=== PATIENT | male | born 1980 | race Caucasian/White ===

== ENCOUNTER 2020-05-10 22:59 | Emergency (ER) | payer OTHER, SELFPAY ==
[2020-05-10 23:09] VITALS: BP 147/76; PULSE 79; RESP 16; TEMP 36.8; O2SAT 100; BMI 22.5
--- NOTE | 2020-05-10 23:27 | ED.RECABL ---
HPI - Recheck/Abnormal Lab/Rx <Kelsie Mirza MD - Last Filed: 05/17/20 07:24> General Chief Complaint: Recheck/Abnormal Lab/Rx Stated Complaint: Sent by [place] physician re blood infection Time Seen by Provider: 05/10/20 23:25 Source: patient Mode of arrival: Ambulatory History of Present Illness HPI narrative: 40-year-old gentleman with a history of IV drug use initially seen 04/25 with a prepatellar knee abscess and cellulitis had a single positive blood culture from that visit he currently lives in [place] has been [facility] with [facility] Disease recommending 6 weeks of IV inpatient antibiotics however patient has social and work obligations that preclude him being in the hospital for this period of time. He has left the emergency room Against Medical Advice twice and [facility] physicians have declined PICC placement for outpatient antibiotics due to his IV drug use history. He has been on Septra and the knee clearly is improving. Blood cultures were not positive with his 2nd it ER visit 3 days later. He notes that he has had some mid thoracic back pain for the last 3-4 weeks approximately T6 level. Noted today is a soft diastolic murmur in the emergency department that was not mentioned in previous notes. Echocardiogram was done 6 days ago and we are working on obtaining results of that. In the meantime, patient aside from the midthoracic back pain present for 3-4 weeks feels that he is better with the knee infection improving. He is not complaining of palpitations, dyspnea, exertional dyspnea. Notes that the severe back pain was what caused his return to use and getting back to heroin after approximately 15 months of sobriety in outpatient treatment setting. He presents to the emergency room this evening, seeing his primary care physician, Dr. Bolanos, wanted him to come for further treatment. Related Data Previous Rx's Medication Instructions Recorded sulfamethoxazole-trimethoprim 1 tab PO BID #14 tab 05/11/20 [Bactrim DS] Allergies Allergy/AdvReac Type Severity Reaction Status Date / Time No Known Drug Allergies Allergy Verified 05/10/20 23:12 Review of Systems <Kelsie Mirza MD - Last Filed: 05/17/20 07:24> Review of Systems Narrative: Pertinent positive and negative findings as per HPI Remainder of review of systems is otherwise unremarkable for Constitutional: Fevers, chills, weakness ENT: No sore throat, neck pain, ear pain CV: Chest pain, palpitations, dyspnea on exertion Respiratory: Cough, wheeze, dyspnea GI: Nausea, vomiting, diarrhea, : Dysuria, hematuria, flank pain MS: Muscle weakness, numbness, Neuro: Syncope, dizziness, tingling Patient History <Kelsie Mirza MD - Last Filed: 05/17/20 07:24> Medical History Opioid use disorder Surgical History H/O knee surgery Social History (Reviewed 05/15/20 @ 21: by Shereen Wan DO) Smoking Status: Current every day smoker Smoking Status: Current every day smoker Substance Use Type: marijuana and prescription drug Exam <Kelsie Mirza MD - Last Filed: 05/17/20 07:24> Narrative Exam Narrative: General: Fatigued in generally unwell appearing but in no acute distress. Able to give a complete and coherent history. HEENT: Moist mucous membranes, normal sclera with reactive pupils, Neck: No JVD, supple Respiratory: Lungs are clear to auscultation, no wheezing no rales no rhonchi. Full and symmetrical air movement Cardiac: Regular rate and rhythm, 3/6 diastolic murmur heard best in an upright position and lattice at the apex, no bruits Abdomen: Soft, nontender, good bowel tones, no flank pain Skin: Multiple areas of small pockets of skin breakdown presumably from IV drug use as well as his methamphetamine use. Hands are both swollen in erythematous consistent both with you need using his hands consistently outside as well as IV drug use Neurologic: Grossly neurologically intact with no obvious asymmetries or abnormalities Extremities: Right forearm is significantly swollen compared to the left with more evidence of healing skin given superficial ulcers. There is an area of abrasion along the ventral surface that is healing that he states was related to a trauma at work with his arm catching on a number of nails well working with [employer]. Right knee has a healing wound over the patella with no erythema, no significant tenderness the right calf has 2+ edema left calf is unremarkable. He is able to walk without any difficulties Psych: Cooperative, good eye contact and nonpressured speech Initial Vital Signs Initial Vital Signs: Vital Signs Temperature 98.3 F 05/10/20 23:09 Pulse Rate 79 05/10/20 23:09 Respiratory Rate 16 05/10/20 23:09 Blood Pressure 147/76 H 05/10/20 23:09 Pulse Oximetry 100 05/10/20 23:09 <Shereen Wan DO - Last Filed: 05/11/20 19:07> Initial Vital Signs Initial Vital Signs: Vital Signs Temperature 98.3 F 05/10/20 23:09 Pulse Rate 79 05/10/20 23:09 Respiratory Rate 16 05/10/20 23:09 Blood Pressure 147/76 H 05/10/20 23:09 Pulse Oximetry 100 05/10/20 23:09 Course <Kelsie Mirza MD - Last Filed: 05/17/20 07:24> Orders Ordered: Discontinued Medications Sodium Chloride (Normal Saline 0.9%) 1,000 mls @ 1,000 mls/hr IV BOLUS ONE Stop: 05/11/20 01:58 Last Infusion: 05/11/20 02:49 Dose: 0 mls/hr Documented by: Admin: 05/11/20 01:02 Dose: 1,000 mls/hr Documented by: VERENICE Vital Signs Vital signs: Vital Signs - 8 hr 05/11/20 02:49 05/11/20 03:00 05/11/20 03:30 Pulse Rate 78 70 78 Blood Pressure 113/70 Pulse Oximetry 94 100 100 <Shereen Wan DO - Last Filed: 05/11/20 19:07> Orders Ordered: Discontinued Medications Sodium Chloride (Normal Saline 0.9%) 1,000 mls @ 1,000 mls/hr IV BOLUS ONE Stop: 05/11/20 01:58 Last Infusion: 05/11/20 02:49 Dose: 0 mls/hr Documented by: Admin: 05/11/20 01:02 Dose: 1,000 mls/hr Documented by: VERENICE Reevaluation(s) Reevaluation #1: Patient reevaluated by myself. Chart, HPI and ROS reviewed and patient examined. Plan for MRI this morning for back pain in the setting of hx of IVDA and 1 positive blood culture 04/25. Patient was recommended 6 weeks IV antibiotics but unable to do so secondary to personal obligations (young child at home and personal business) but has been on oral Septra. Attempting to obtain ECHO this am as well. Labs show anemia, elevated CPR at 1.2 but no leukocytosis and procalcitonin is negative. No other major lab abnormalities at this time. Patient has had MRI, reviewed risks and benefits but he states he needs to return home to his daughter. Plan to recontact patient regarding MRI results, he has been asked to call by 1pm if we have not contacted him today. Stable and non-toxic appearing at this time. He [place] and states he was told his ECHO looks great but we have not received a report yet although still trying to reach the [facility] cardiology. Patient is polite and discusses that he does have follow up and intends to follow up with PCP. Time: 09:09 Vital Signs Vital signs: Vital Signs - 8 hr 05/11/20 02:49 05/11/20 03:00 05/11/20 03:30 Pulse Rate 78 70 78 Blood Pressure 113/70 Pulse Oximetry 94 100 100 MDM - Recheck/Abnormal Lab/Rx <Kelsie Mirza MD - Last Filed: 05/17/20 07:24> Medical Records Attestation: I reviewed the patient's medical records. Medical records narrative: Records from [facility] timeline: ER 04/25 Right knee pain with lymphangytic spread. -CT of knee for intra-articular involvement. + blood cx for MSSA pt returned to ER 04/27, Vanco/rocephin. Repeat blood cx, no growth. Left AMA. during this time he had a return to use and urine + for meth/heroin on 04/30 04/30 pt states his PCP (Dr Bolanos)[place] sent him to [facility] ER to have a PICC line placed in anticipation of 6 weeks of outpatient IV antibiotics. Case was reveiwed with ID, Dr Novoa who recomended agressive ER management. Outpatient IV antibiotics with IV access in a setting of IV drug use is against hospital policy at [facility]. He was discharged with Bactrim and patient has continued to take that. 05/01 6 week hospital stay for IV antibiotics offered and patient declined and again left Against Medical Advice (has a 9-year-old daughter for whom he must care and owns his own [employer] business) Summary: one BC positive on 04/25 with prepatellar abscess right knee and cellulitis. Treated with a couple dose IV vanco and ceftriaxone with ER visits and has continued septra. B/C from 04/27 were negative. Had Echocardiogram on 05/04. Lab Data Result diagrams: 05/11/20 00:20 05/11/20 00:20 Labs: Lab Results 05/11/20 05/11/20 05/11/20 Range/Units 00:20 00:20 00:20 WBC 8.0 (4.5-11.0) X10^3/uL RBC 3.47 L (4.5-5.9) X10^6/uL Hgb 9.3 L (13.5-17.5) g/dL Hct 28.6 L (41-53) % MCV 82.3 (80-100) fL MCH 26.7 (26-34) PG MCHC 32.5 (30-36) % RDW 16.3 H (11.6-14.8) % Plt Count 341 (150-400) X10^3/uL Neut % (Auto) 64.9 (50-75) % Lymph % (Auto) 25.3 (25-40) % [place] % (Auto) 7.9 (3-14) % Eos % (Auto) 0.9 L (2-4) % Baso % (Auto) 1.0 (0-2) % Neut # (Auto) 5200 (4626-0479) /uL Lymph # (Auto) 2000 (6393-6133) /uL [place] # (Auto) 600 (0-900) /uL Eos # (Auto) 100 (0-450) /uL Baso # (Auto) 100 (0-100) /uL ESR (0-15) MM/HR Sodium 135 L (137-145) mmol/L Potassium 4.2 (3.4-5.1) mmol/L Chloride 101 (98-107) mmol/L Carbon Dioxide 31 (22-32) mmol/L BUN 17 (9-20) mg/dL Creatinine 0.85 (0.66-1.25) mg/dL Estimated GFR > 60.0 (>60) mL/min BUN/Creatinine Ratio 20.0 (6-22) Glucose 98 (70-100) mg/dL Lactate 0.5 L (0.7-2.1) mmol/L Calcium 8.9 (8.4-10.2) mg/dL Total Bilirubin 0.2 (0.2-1.3) mg/dL AST 28 (17-59) IU/L ALT 13 (<50) IU/L Alkaline Phosphatase 84 (38-126) U/L C-Reactive Protein (<1.0) mg/dL Total Protein 7.7 (6.3-8.2) g/dL Albumin 3.6 (3.5-5.0) g/dL Globulin 4.1 (1.7-4.1) g/dL Albumin/Globulin Ratio 0.9 L (1.0-2.8) Procalcitonin (<0.5) ng/mL SARS-CoV-2 (PCR) (Negative) 05/11/20 05/11/20 05/11/20 Range/Units 00:20 00:20 00:20 WBC (4.5-11.0) X10^3/uL RBC (4.5-5.9) X10^6/uL Hgb (13.5-17.5) g/dL Hct (41-53) % MCV (80-100) fL MCH (26-34) PG MCHC (30-36) % RDW (11.6-14.8) % Plt Count (150-400) X10^3/uL Neut % (Auto) (50-75) % Lymph % (Auto) (25-40) % [place] % (Auto) (3-14) % Eos % (Auto) (2-4) % Baso % (Auto) (0-2) % Neut # (Auto) (6182-8967) /uL Lymph # (Auto) (3690-2952) /uL [place] # (Auto) (0-900) /uL Eos # (Auto) (0-450) /uL Baso # (Auto) (0-100) /uL ESR 41 H (0-15) MM/HR Sodium (137-145) mmol/L Potassium (3.4-5.1) mmol/L Chloride (98-107) mmol/L Carbon Dioxide (22-32) mmol/L BUN (9-20) mg/dL Creatinine (0.66-1.25) mg/dL Estimated GFR (>60) mL/min BUN/Creatinine Ratio (6-22) Glucose (70-100) mg/dL Lactate (0.7-2.1) mmol/L Calcium (8.4-10.2) mg/dL Total Bilirubin (0.2-1.3) mg/dL AST (17-59) IU/L ALT (<50) IU/L Alkaline Phosphatase (38-126) U/L C-Reactive Protein 1.2 H (<1.0) mg/dL Total Protein (6.3-8.2) g/dL Albumin (3.5-5.0) g/dL Globulin (1.7-4.1) g/dL Albumin/Globulin Ratio (1.0-2.8) Procalcitonin 0.05 (<0.5) ng/mL SARS-CoV-2 (PCR) (Negative) 05/11/20 Range/Units 00:38 WBC (4.5-11.0) X10^3/uL RBC (4.5-5.9) X10^6/uL Hgb (13.5-17.5) g/dL Hct (41-53) % MCV (80-100) fL MCH (26-34) PG MCHC (30-36) % RDW (11.6-14.8) % Plt Count (150-400) X10^3/uL Neut % (Auto) (50-75) % Lymph % (Auto) (25-40) % [place] % (Auto) (3-14) % Eos % (Auto) (2-4) % Baso % (Auto) (0-2) % Neut # (Auto) (2478-9348) /uL Lymph # (Auto) (2703-9732) /uL [place] # (Auto) (0-900) /uL Eos # (Auto) (0-450) /uL Baso # (Auto) (0-100) /uL ESR (0-15) MM/HR Sodium (137-145) mmol/L Potassium (3.4-5.1) mmol/L Chloride (98-107) mmol/L Carbon Dioxide (22-32) mmol/L BUN (9-20) mg/dL Creatinine (0.66-1.25) mg/dL Estimated GFR (>60) mL/min BUN/Creatinine Ratio (6-22) Glucose (70-100) mg/dL Lactate (0.7-2.1) mmol/L Calcium (8.4-10.2) mg/dL Total Bilirubin (0.2-1.3) mg/dL AST (17-59) IU/L ALT (<50) IU/L Alkaline Phosphatase (38-126) U/L C-Reactive Protein (<1.0) mg/dL Total Protein (6.3-8.2) g/dL Albumin (3.5-5.0) g/dL Globulin (1.7-4.1) g/dL Albumin/Globulin Ratio (1.0-2.8) Procalcitonin (<0.5) ng/mL SARS-CoV-2 (PCR) Negative (Negative) ECG Data Attestation: I personally reviewed and interpreted this ECG as follows: MDM Narrative Medical decision making narrative: Disjointed medical care in a gentleman with a history of IV drug use currently living on [address] with a positive blood culture on 04/25. Right knee prepatellar abscess and cellulitis has resolved nicely he continues on Bactrim. He does have a noted diastolic murmur today without evidence of splinter hemorrhages or other sequelae of endocarditis. The midthoracic back pain raises the possibility of epidural abscess or diskitis. Will continue to work on tracking down echocardiogram done May 04. Blood work done today is unremarkable. MRI of the thoracic spine to rule out epidural abscess will also be appropriate. Blood work does not suggest severe overt infection however his C reactive protein is slightly elevated at 1.2. Lactic acid is unremarkable. Will order an MRI of the thoracic spine fine for 1st thing in the morning. Will need to coordinate care with his primary care [place] [facility] and track down the echocardiogram. Based on information from those 2 pieces with blood work done today additional information from previous infectious disease recommendations may need to rediscuss care with the infectious disease specialist. If it truly is a single blood culture from April 25 that was positive with no other blood cultures positive and negative echocardiogram and negative MRI he may not need 6 weeks of IV antibiotics. Clearly there are missing pieces to this diagnostic picture and these will not be able to be sorted out until daytime when additional consultation is available <Shereen Wan, DO - Last Filed: 05/11/20 19:07> Lab Data Labs: Lab Results 05/11/20 05/11/20 05/11/20 Range/Units 00:20 00:20 00:20 WBC 8.0 (4.5-11.0) X10^3/uL RBC 3.47 L (4.5-5.9) X10^6/uL Hgb 9.3 L (13.5-17.5) g/dL Hct 28.6 L (41-53) % MCV 82.3 (80-100) fL MCH 26.7 (26-34) PG MCHC 32.5 (30-36) % RDW 16.3 H (11.6-14.8) % Plt Count 341 (150-400) X10^3/uL Neut % (Auto) 64.9 (50-75) % Lymph % (Auto) 25.3 (25-40) % [place] % (Auto) 7.9 (3-14) % Eos % (Auto) 0.9 L (2-4) % Baso % (Auto) 1.0 (0-2) % Neut # (Auto) 5200 (0028-7967) /uL Lymph # (Auto) 2000 (7015-7247) /uL [place] # (Auto) 600 (0-900) /uL Eos # (Auto) 100 (0-450) /uL Baso # (Auto) 100 (0-100) /uL ESR (0-15) MM/HR Sodium 135 L (137-145) mmol/L Potassium 4.2 (3.4-5.1) mmol/L Chloride 101 (98-107) mmol/L Carbon Dioxide 31 (22-32) mmol/L BUN 17 (9-20) mg/dL Creatinine 0.85 (0.66-1.25) mg/dL Estimated GFR > 60.0 (>60) mL/min BUN/Creatinine Ratio 20.0 (6-22) Glucose 98 (70-100) mg/dL Lactate 0.5 L (0.7-2.1) mmol/L Calcium 8.9 (8.4-10.2) mg/dL Total Bilirubin 0.2 (0.2-1.3) mg/dL AST 28 (17-59) IU/L ALT 13 (<50) IU/L Alkaline Phosphatase 84 (38-126) U/L C-Reactive Protein (<1.0) mg/dL Total Protein 7.7 (6.3-8.2) g/dL Albumin 3.6 (3.5-5.0) g/dL Globulin 4.1 (1.7-4.1) g/dL Albumin/Globulin Ratio 0.9 L (1.0-2.8) Procalcitonin (<0.5) ng/mL SARS-CoV-2 (PCR) (Negative) 05/11/20 05/11/20 05/11/20 Range/Units 00:20 00:20 00:20 WBC (4.5-11.0) X10^3/uL RBC (4.5-5.9) X10^6/uL Hgb (13.5-17.5) g/dL Hct (41-53) % MCV (80-100) fL MCH (26-34) PG MCHC (30-36) % RDW (11.6-14.8) % Plt Count (150-400) X10^3/uL Neut % (Auto) (50-75) % Lymph % (Auto) (25-40) % [place] % (Auto) (3-14) % Eos % (Auto) (2-4) % Baso % (Auto) (0-2) % Neut # (Auto) (0643-2036) /uL Lymph # (Auto) (5342-2174) /uL [place] # (Auto) (0-900) /uL Eos # (Auto) (0-450) /uL Baso # (Auto) (0-100) /uL ESR 41 H (0-15) MM/HR Sodium (137-145) mmol/L Potassium (3.4-5.1) mmol/L Chloride (98-107) mmol/L Carbon Dioxide (22-32) mmol/L BUN (9-20) mg/dL Creatinine (0.66-1.25) mg/dL Estimated GFR (>60) mL/min BUN/Creatinine Ratio (6-22) Glucose (70-100) mg/dL Lactate (0.7-2.1) mmol/L Calcium (8.4-10.2) mg/dL Total Bilirubin (0.2-1.3) mg/dL AST (17-59) IU/L ALT (<50) IU/L Alkaline Phosphatase (38-126) U/L C-Reactive Protein 1.2 H (<1.0) mg/dL Total Protein (6.3-8.2) g/dL Albumin (3.5-5.0) g/dL Globulin (1.7-4.1) g/dL Albumin/Globulin Ratio (1.0-2.8) Procalcitonin 0.05 (<0.5) ng/mL SARS-CoV-2 (PCR) (Negative) 05/11/20 Range/Units 00:38 WBC (4.5-11.0) X10^3/uL RBC (4.5-5.9) X10^6/uL Hgb (13.5-17.5) g/dL Hct (41-53) % MCV (80-100) fL MCH (26-34) PG MCHC (30-36) % RDW (11.6-14.8) % Plt Count (150-400) X10^3/uL Neut % (Auto) (50-75) % Lymph % (Auto) (25-40) % [place] % (Auto) (3-14) % Eos % (Auto) (2-4) % Baso % (Auto) (0-2) % Neut # (Auto) (0565-6175) /uL Lymph # (Auto) (8503-2648) /uL [place] # (Auto) (0-900) /uL Eos # (Auto) (0-450) /uL Baso # (Auto) (0-100) /uL ESR (0-15) MM/HR Sodium (137-145) mmol/L Potassium (3.4-5.1) mmol/L Chloride (98-107) mmol/L Carbon Dioxide (22-32) mmol/L BUN (9-20) mg/dL Creatinine (0.66-1.25) mg/dL Estimated GFR (>60) mL/min BUN/Creatinine Ratio (6-22) Glucose (70-100) mg/dL Lactate (0.7-2.1) mmol/L Calcium (8.4-10.2) mg/dL Total Bilirubin (0.2-1.3) mg/dL AST (17-59) IU/L ALT (<50) IU/L Alkaline Phosphatase (38-126) U/L C-Reactive Protein (<1.0) mg/dL Total Protein (6.3-8.2) g/dL Albumin (3.5-5.0) g/dL Globulin (1.7-4.1) g/dL Albumin/Globulin Ratio (1.0-2.8) Procalcitonin (<0.5) ng/mL SARS-CoV-2 (PCR) Negative (Negative) MDM Narrative Medical decision making narrative: Patient re-contacted with MRI results. Diskitis with osteomyelitis and epidural abscess at T2-3 level. Patient contacted immediately afterwards. Patient has some inflammatory changes is possibly involving the mediastinum concern for mediastinitis. Patient discussed he needs to return, he needs IV antibiotics inpatient evaluation and see surgery. He does not found of fall like he will return immediately. 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 We discussed this is something that can at least initially be treated as an outpatient. I did state that he can go to a larger facility if he feels uncomfortable here, he will likely need to see a spinal surgeon which we may not have available as well but I am happy to see him here. And admit him here of able or transfer if needed. Discharge Plan Departure Patient Disposition: Left Against Medical Advice Clinical Impression: Back pain, Discitis, Osteomyelitis, Epidural abscess Activity Restrictions/Additional Instructions: Follow up with your physician for recheck as we discussed. Discuss with your physician if you should continue your oral antibiotics. Continue your oral antibiotics. Your blood cultures today are pending and typically take 48-72 hours to return. If positive you should expect a phone call to update you. MRI today has been performed but results are not available yet. There is the possibility that you have an abscess or infection in your spine, please be aware if this is the case this is emergent and needs IV inpatient antibiotics regardless and evaluation by ortho or a spinal surgeon. We do not know at this time for sure if you have an infection. Please realize you can return at any time for repeat evaluation or care. If you have not heard back from the ER by 1pm today, please call to follow up your MRI results at [phone]. Return for fevers greater than 100.4F, increasing knee swelling, redness, pain or other signs of infection if you are having new chest pain, shortness of breath, lightheadedness or passing out, new swelling in your extremities, new bruising or other new spots or rash on her extremities or body, rapidly worsening back pain, new numbness, weakness or difficulty with movement or other new or concerning symptoms. Prescriptions: New sulfamethoxazole-trimethoprim [Bactrim DS] 800-160 mg tablet 1 tab PO BID Qty: 14 RF: 0 Stand Alone Forms: Against Medical Advice
--- NOTE | 2020-05-11 00:45 | PC.NURSE ---
Pt is very difficult IV start. L IJ placed by Dr Mirza and 2 sets blood cultures drawn from same site. Pt tolerated well.
[2020-05-11 00:47] LABS: Add Manual Diff / Slide Review NO; Basophils Absolute Auto 100 /uL (0-100); Eosinophils Absolute Auto 100 /uL (0-450); Eosinophils Percent Auto 0.9 % (2-4); Hematocrit 28.6 % (41-53); Hemoglobin 9.3 g/dL (13.5-17.5); Lymphocytes Absolute Auto 2000 /uL (1100-4500); Lymphocytes Percent Auto 25.3 % (25-40); Mean Corpuscular HGB Conc 32.5 % (30-36); Mean Corpuscular Hemoglobin 26.7 PG (26-34); Mean Corpuscular Volume 82.3 fL (80-100); Monocytes Absolute Auto 600 /uL (0-900); Monocytes Percent Auto 7.9 % (3-14); Neutrophils Absolute Auto 5200 /uL (1500-7000); Neutrophils Percent Auto 64.9 % (50-75); Platelet Count 341 X10^3/uL (150-400); Red Blood Cell Count 3.47 X10^6/uL (4.5-5.9); Red Cell Distribution Width 16.3 % (11.6-14.8)
[2020-05-11 00:49] LABS: Lactate (Lactic Acid) 0.5 mmol/L (0.7-2.1)
[2020-05-11 00:50] LABS: Alanine Aminotransferase 13 IU/L (<50); Albumin 3.6 g/dL (3.5-5.0); Albumin Globulin Ratio 0.9 (1.0-2.8); Alkaline Phosphatase 84 U/L (38-126); Aspartate Aminotransferase 28 IU/L (17-59); Bilirubin Total 0.2 mg/dL (0.2-1.3); Blood Urea Nitrogen 17 mg/dL (9-20); Calcium 8.9 mg/dL (8.4-10.2); Carbon Dioxide 31 mmol/L (22-32); Chloride 101 mmol/L (98-107); Estimated Glomerular Filt Rate > 60.0 mL/min (>60); Globulin 4.1 g/dL (1.7-4.1); Glucose 98 mg/dL (70-100); HEMOLYSIS 19 (0-50); Potassium 4.2 mmol/L (3.4-5.1); Sodium 135 mmol/L (137-145); Total Protein 7.7 g/dL (6.3-8.2)
[2020-05-11 00:52] LABS: C-Reactive Protein Quant 1.2 mg/dL (<1.0)
[2020-05-11 01:02] LABS: COVID19 -Nasal RAPID Negative (Negative)
[2020-05-11] MEDS: SODIUM CHLORIDE 0.9% 1,000 ML 1000 ML IV (01:02)
[2020-05-11 01:13] LABS: Procalcitonin 0.05 ng/mL (<0.5)
[2020-05-11 01:14] LABS: Erythrocyte Sedimentation Rate 41 MM/HR (0-15)
[2020-05-11 02:49] VITALS: BP 113/70; PULSE 78; O2SAT 94
[2020-05-11 03:00] VITALS: PULSE 70; O2SAT 100
--- NOTE | 2020-05-11 03:26 | DI.MRI.S_ITS ---
PROCEDURE: MR THORACIC SPINE WO/W CON INDICATIONS: Pain approximately T6, IV drug use, question epidural absces TECHNIQUE: Noncontrast sagittal T1 spin echo and T2 fast spin echo, sagittal STIR, axial T1 and T2 fast spin echo through the thoracic spine. After the administration of contrast, axial and sagittal T1 spin echo with fat saturation through the thoracic spine. COMPARISON: None. FINDINGS: Image quality: Excellent. Diffuse vertebral body edema of T2 and T3. There is inferior and superior endplate destruction respectively with retropulsion of the posterior column of T3. Irregular and diffuse high signal in the expected location of the T2-3 disc. There is thickening and expansion of the dorsal epidural space with enhancing material compressing the spinal canal extending from T1 through T4 , but most extensive at the T2-3 level. The paravertebral soft tissues anteriorly and laterally also demonstrate ill definition and diffuse thickening extending to the esophagus anteriorly and likely into the anterior mediastinum. There is displacement of the trachea to the right. The cord is compressed and distorted at the T2-3 level narrowing the central canal by about 50%. No definite cord edema. No focal cord enhancement or intradural enhancement elsewhere. Other thoracic vertebral bodies demonstrate normal marrow signal. There is a vertebral body hemangioma in T11. There is straightening of the thoracic kyphosis, probably due to splinting/muscular spasm. Disc spacing is otherwise within normal limits. IMPRESSION: 1. Discitis osteomyelitis and epidural abscess at the T2-3 level. 2. Paravertebral inflammatory tissue anteriorly and laterally extends to and possibly involves the mediastinum at the thoracic inlet. Concern of possible development of mediastinitis is raised. 3. Findings discussed with Dr. Wan in the emergency room at 08:40 hours, [place] standard time. Dictated by: Randi Traylor M.D. on 05/11/2020 at 8:23 Approved by: Randi Traylor M.D. on 05/11/2020 at 8:41
[2020-05-11 03:30] VITALS: PULSE 78; O2SAT 100
== END 2020-05-11 09:16 | disposition left against medical advice (07) ==
PROVIDERS: Emergency Medicine; Emergency Provider Emergency Medicine
DX: M46.44 Discitis, unspecified, thoracic region (principal); M46.24 Osteomyelitis of vertebra, thoracic region; G06.2 Extradural and subdural abscess, unspecified; R79.82 Elevated C-reactive protein (CRP); Z20.822 Contact with and (suspected) exposure to COVID-19; F11.99 Opioid use, unspecified with unspecified opioid-induced disorder
CPT/HCPCS: 36415; 72157; 80053; 83605; 84145; 85025; 85651; 86140; 87040; 87635; 96360; 96361; 99283; 99284; C9803

== ENCOUNTER 2020-05-15 19:34 | Emergency (ER) | payer OTHER, MEDICAID, SELFPAY ==
[2020-05-15] VITALS (7 sets, daily range): BP systolic 119–135; BP diastolic 69–86; PULSE 65–77; RESP 9–16; TEMP 36.4; O2SAT 99–100; BMI 21.7
--- NOTE | 2020-05-15 20:27 | ED.RECABL ---
HPI - Recheck/Abnormal Lab/Rx General Chief Complaint: Recheck/Abnormal Lab/Rx Stated Complaint: Follow Up On Blood Infection/Abcess On Spine Time Seen by Provider: 05/15/20 20:27 Source: patient Mode of arrival: Ambulatory Limitations: no limitations History of Present Illness HPI narrative: This is a 40-year-old male who was seen by myself on the 11 of May. Patient had at that time and signed out by Dr. Garcia after having some positive blood cultures and being seen at [facility] in [place] and recommended IV antibiotics for 6 weeks for bacteremia. Patient had complained of some back pain any had an MRI here in the department which showed diskitis, osteomyelitis and epidural abscess at the T2-3 level. There is also concerning changes for mediastinitis. 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 Patient states he has not had any new changes. He denies fevers, he denies chills, he denies any chest pain or shortness of breath, he denies any numbness, tingling or weakness of his extremities, he denies any loss of bowel or bladder control, no difficulty with movement or ambulation. Patient did talk to his physicians in [place] on [facility] and was referred back to [facility]. Related Data Previous Rx's Medication Instructions Recorded sulfamethoxazole-trimethoprim 1 tab PO BID #14 tab 05/11/20 [Bactrim DS] Allergies Allergy/AdvReac Type Severity Reaction Status Date / Time No Known Drug Allergies Allergy Verified 05/10/20 23:12 Review of Systems Review of Systems ROS Unobtainable: All systems reviewed & are unremarkable except as noted in HPI and below Patient History Medical History Opioid use disorder Surgical History H/O knee surgery Social History Smoking Status: Current every day smoker Smoking Status: Current every day smoker Substance Use Type: former substance user, marijuana and prescription drug Exam Narrative Exam Narrative: GENERAL: Alert and oriented x three, thin male in mild distress. HEENT: Head normocephalic, atraumatic, EOMI, pupils reactive, face symmetric, moist mucous membranes NECK: Supple, full range of motion CARDIOVASCULAR: Regular rate and rhythm without murmurs, rubs or gallops. RESPIRATORY: Breath sounds equal bilaterally, no wheezes rales or rhonchi. ABDOMEN: Soft, nontender. Normoactive bowel sounds all 4 quadrants. No guarding or rebound, rigidity, no mass : No CVA tenderness EXTREMITIES: Normal range of motion, no clubbing or edema. Neurovascularly intact NEUROLOGICAL: Cranial nerves II through XII grossly intact. Moving all extremities. Normal gait. SKIN: Warm, dry, no petechiae, no rashes or lesions. Initial Vital Signs Initial Vital Signs: Vital Signs Temperature 97.6 F 05/15/20 19:50 Pulse Rate 76 05/15/20 19:50 Respiratory Rate 16 05/15/20 19:50 Blood Pressure 135/73 05/15/20 19:50 Pulse Oximetry 99 05/15/20 19:50 Course Orders Ordered: ED Orders 05/15/20 21:20 Complete Blood Count AUTO DIFF Stat Erythrocyte Sedimentation Rate Stat Discontinued Medications Vancomycin HCl/Dextrose (Vancomycin) 2,000 mg in 400 mls @ 200 mls/hr IV NOW ONE Stop: 05/15/20 22:59 Last Admin: 05/15/20 21:36 Dose: Not Given Documented by: CARMINA Cefepime HCl 2 gm/ Sodium (Chloride) 100 mls @ 200 mls/hr IV NOW ONE Stop: 05/15/20 20:59 Last Admin: 05/15/20 21:36 Dose: Not Given Documented by: CARMINA Vital Signs Vital signs: Vital Signs - 8 hr 05/15/20 19:50 Temperature 97.6 F Pulse Rate 76 Respiratory Rate 16 Blood Pressure 135/73 Pulse Oximetry 99 MDM - Recheck/Abnormal Lab/Rx Lab Data Attestation: I reviewed the patient's lab results. Result diagrams: 05/15/20 21:20 05/15/20 20:40 Labs: Lab Results 05/15/20 05/15/20 05/15/20 Range/Units 20:40 20:40 21:20 WBC 6.4 (4.5-11.0) X10^3/uL RBC 4.05 L (4.5-5.9) X10^6/uL Hgb 10.8 L (13.5-17.5) g/dL Hct 33.3 L (41-53) % MCV 82.2 (80-100) fL MCH 26.8 (26-34) PG MCHC 32.6 (30-36) % RDW 16.8 H (11.6-14.8) % Plt Count 336 (150-400) X10^3/uL Neut % (Auto) 55.4 (50-75) % Lymph % (Auto) 31.5 (25-40) % [place] % (Auto) 9.7 (3-14) % Eos % (Auto) 2.2 (2-4) % Baso % (Auto) 1.2 (0-2) % Neut # (Auto) 3600 (1635-4260) /uL Lymph # (Auto) 2000 (3800-7323) /uL [place] # (Auto) 600 (0-900) /uL Eos # (Auto) 100 (0-450) /uL Baso # (Auto) 100 (0-100) /uL ESR 34 H (0-15) MM/HR Sodium 135 L (137-145) mmol/L Potassium 4.5 (3.4-5.1) mmol/L Chloride 98 (98-107) mmol/L Carbon Dioxide 29 (22-32) mmol/L BUN 15 (9-20) mg/dL Creatinine 0.73 (0.66-1.25) mg/dL Estimated GFR > 60.0 (>60) mL/min BUN/Creatinine Ratio 20.5 (6-22) Glucose 118 H (70-100) mg/dL Lactate 0.9 (0.7-2.1) mmol/L Calcium 9.3 (8.4-10.2) mg/dL Total Bilirubin 0.2 (0.2-1.3) mg/dL AST 26 (17-59) IU/L ALT 14 (<50) IU/L Alkaline Phosphatase 111 (38-126) U/L C-Reactive Protein 1.2 H (<1.0) mg/dL Total Protein 9.3 H (6.3-8.2) g/dL Albumin 4.6 (3.5-5.0) g/dL Globulin 4.7 H (1.7-4.1) g/dL Albumin/Globulin Ratio 1.0 (1.0-2.8) Imaging Data MRI Thoracic spine: Radiologist's Impression: [address] [id number] Resonance ReportSigned Patient: Brian DealMR#: [id number]: [id number]:[id number]/Sex: 40 / MDate of Service: 05/11/20Loc: EDAccession Number: [id number] Procedure: MR thoracic spine wo/w con Ordering Provider: Kelsie Mirza MD PROCEDURE: MR THORACIC SPINE WO/W CON INDICATIONS: Pain approximately T6, IV drug use, question epidural absces TECHNIQUE: Noncontrast sagittal T1 spin echo and T2 fast spin echo, sagittal STIR, axial T1 and T2 fast spin echo through the thoracic spine. After the administration of contrast, axial and sagittal T1 spin echo with fat saturation through the thoracic spine. COMPARISON: None. FINDINGS: Image quality: Excellent. Diffuse vertebral body edema of T2 and T3. There is inferior and superior endplate destruction respectively with retropulsion of the posterior column of T3. Irregular and diffuse high signal in the expected location of the T2-3 disc. There is thickening and expansion of the dorsal epidural space with enhancing material compressing the spinal canal extending from T1 through T4 , but most extensive at the T2-3 level. The paravertebral soft tissues anteriorly and laterally also demonstrate ill definition and diffuse thickening extending to the esophagus anteriorly and likely into the anterior mediastinum. There is displacement of the trachea to the right. The cord is compressed and distorted at the T2-3 level narrowing the central canal by about 50%. No definite cord edema. No focal cord enhancement or intradural enhancement elsewhere. Other thoracic vertebral bodies demonstrate normal marrow signal. There is a vertebral body hemangioma in T11. There is straightening of the thoracic kyphosis, probably due to splinting/muscular spasm. Disc spacing is otherwise within normal limits. IMPRESSION: 1. Discitis osteomyelitis and epidural abscess at the T2-3 level. 2. Paravertebral inflammatory tissue anteriorly and laterally extends to and possibly involves the mediastinum at the thoracic inlet. Concern of possible development of mediastinitis is raised. 3. Findings discussed with Dr. Wan in the emergency room at 08:40 hours, [place] standard time. Dictated by: Randi Traylor M.D. on 05/11/2020 at 8:23 Approved by: Randi Traylor M.D. on 05/11/2020 at 8:41 [facility] Narrative Medical decision making narrative: Discussed with patient we do not have full capabilities for treatment. We can give IV antibiotics but he needs to see a surgeon and likely have surgery to clean out the epidural abscess and treatment of his osteomyelitis as well as REGINALD to evaluate his valves which we also do not have the capability. Discussed with patient he is willing we discussed options he would prefer [place], discussed I am happy to transfer him at this time but he states he would rather drive himself so that he has access to his vehicle and he plans to leave AMA rather than be transferred. Patient was asked to wait to verify they have the proper facilities before he leaves. I am also happy to fax/send his records with him. I did call the ER and spoke with Dr. Tong to try to clarify if they do have all the appropriate capabilities. Seems likely that they do and he is aware patient is leaving AMA with plan to come to his facility. Discharge Plan Departure Patient Disposition: Left Against Medical Advice Clinical Impression: Abscess in epidural space of thoracic spine, Osteomyelitis Activity Restrictions/Additional Instructions: It is recommended that you be transferred through the proper channels. Your MRI from 05/11/20 shows discitis and osteomyelitis and epidural abscess at the T2-3 level as well as inflammation of the mediastinum which is concerning for mediastinitis. Please go directly to the hospital of your choice, not all hospitals have the capability to treat this completely. You will need prolonged IV antibiotics, surgery and likely at trans esophageal echo. Prescriptions: No Action sulfamethoxazole-trimethoprim [Bactrim DS] 800-160 mg tablet 1 tab PO BID Qty: 14 RF: 0 Stand Alone Forms: Against Medical Advice
[2020-05-15 21:11] LABS: Lactate (Lactic Acid) 0.9 mmol/L (0.7-2.1)
[2020-05-15 21:15] LABS: Alanine Aminotransferase 14 IU/L (<50); Albumin 4.6 g/dL (3.5-5.0); Alkaline Phosphatase 111 U/L (38-126); Aspartate Aminotransferase 26 IU/L (17-59); BUN Creatinine Ratio 20.5 (6-22); Bilirubin Total 0.2 mg/dL (0.2-1.3); Blood Urea Nitrogen 15 mg/dL (9-20); C-Reactive Protein Quant 1.2 mg/dL (<1.0); Calcium 9.3 mg/dL (8.4-10.2); Carbon Dioxide 29 mmol/L (22-32); Chloride 98 mmol/L (98-107); Estimated Glomerular Filt Rate > 60.0 mL/min (>60); Globulin 4.7 g/dL (1.7-4.1); Glucose 118 mg/dL (70-100); HEMOLYSIS < 15 (0-50); Potassium 4.5 mmol/L (3.4-5.1); Sodium 135 mmol/L (137-145); Total Protein 9.3 g/dL (6.3-8.2)
[2020-05-15 21:32] LABS: Add Manual Diff / Slide Review NO; Basophils Absolute Auto 100 /uL (0-100); Basophils Percent Auto 1.2 % (0-2); Eosinophils Absolute Auto 100 /uL (0-450); Eosinophils Percent Auto 2.2 % (2-4); Hematocrit 33.3 % (41-53); Hemoglobin 10.8 g/dL (13.5-17.5); Lymphocytes Absolute Auto 2000 /uL (1100-4500); Lymphocytes Percent Auto 31.5 % (25-40); Mean Corpuscular HGB Conc 32.6 % (30-36); Mean Corpuscular Hemoglobin 26.8 PG (26-34); Mean Corpuscular Volume 82.2 fL (80-100); Monocytes Absolute Auto 600 /uL (0-900); Monocytes Percent Auto 9.7 % (3-14); Neutrophils Absolute Auto 3600 /uL (1500-7000); Neutrophils Percent Auto 55.4 % (50-75); Platelet Count 336 X10^3/uL (150-400); Red Blood Cell Count 4.05 X10^6/uL (4.5-5.9); Red Cell Distribution Width 16.8 % (11.6-14.8); White Blood Cell Count 6.4 X10^3/uL (4.5-11.0)
--- NOTE | 2020-05-15 21:36 | PC.NURSE ---
Per Dr Wan, Patient is going to [facility], Antibiotics will be given there.
[2020-05-15 21:50] LABS: Erythrocyte Sedimentation Rate 34 MM/HR (0-15)
== END 2020-05-15 22:03 | disposition left against medical advice (07) ==
PROVIDERS: Emergency Provider Emergency Medicine
DX: G06.1 Intraspinal abscess and granuloma (principal); M86.9 Osteomyelitis, unspecified; F11.99 Opioid use, unspecified with unspecified opioid-induced disorder
CPT/HCPCS: 80053; 83605; 85025; 85651; 86140; 87040; 99281; 99283